=== PATIENT | male | born 1955 | race Caucasian/White ===

== ENCOUNTER 2016-06-17 13:52 | Emergency (ER) | payer OTHER ==
[~2016-06-17] VITALS: Ht 177.8 cm; Wt 122.8 kg
[~2016-06-17 13:52] MED LIST: PHENERGAN-CODE120 ML PO; PREDNISONE20 MG PO; PROAIR HFA8.5 GM IH; TESSALON PERLE100 MG PO; ZYRTEC10 M2 PO
[2016-06-17 14:46] LABS: HEMATOCRIT 39.8 % (38.0-50.0); MCH 30.2 PG (29.0-34.0); MCHC 33.4 G/DL (30.0-36.0); MCV 90.2 FL (86-99); MEAN PLAT.VOLUME 9.5 uM^3 (9.0-12.4); PLATELET COUNT 230 K/uL (156-360); RBC DIS.WIDTH-CV 13.6 % (11.8-14.6); RBC DIS.WIDTH-SD 45.7 % (39-53); RED BLOOD COUNT 4.41 M/uL (4.00-5.50)
[2016-06-17 14:55] LABS: CHLORIDE 100 mEq/L (99-109); POTASSIUM 4.1 mEq/L (3.7-5.4); SODIUM 135 mEq/L (136-147)
[2016-06-17 14:56] LABS: GLUCOSE 110 mg/dL (70-99)
[2016-06-17 14:58] LABS: ANION GAP 9 MEQ/L (2-14)
[2016-06-17 15:00] LABS: GFR ESTIMATE (CALCULATED) > 59 mL/min/
[2016-06-17 15:01] LABS: UREA NITROGEN (BUN) 15 mg/dL (9-23)
[2016-06-17] MEDS ORDERED: LORTAB 5-325 M1 EACH PO (16:07)
[2016-06-17] MEDS ORDERED: KEFLEX500 MG PO (16:07)
[2016-06-17] MEDS ORDERED: SPORANOX100 MG PO (16:07)
[2016-06-17 16:18] VITALS: BP 154/69
== END 2016-06-17 16:20 | disposition home or self-care (01) ==
LOC: EME 13:52
PROVIDERS: Nurse Practitioner Family
DX: L03.113 Cellulitis of right upper limb (principal); R22.31 Localized swelling, mass and lump, right upper limb; M25.521 Pain in right elbow
CPT/HCPCS: 73080; 80048; 85027; 99281; 99283